=== PATIENT | male | born 2000 | race Caucasian/White ===

== ENCOUNTER 2021-06-28 11:25 | Inpatient (IN) ==
[2021-06-28] MEDS ORDERED: Al Hydrox/Mg Hydrox/Simet LIQ 30 ML UDC PO PRN (12:41)
[2021-06-28] MEDS ORDERED: LORazepam 2 mg VIAL 1 ml IM ONE (13:04)
[2021-06-28] MEDS ORDERED: Haloperidol 5 mg/ml SDV IV/IM 5 MG/ML AMP IM ONE (13:04)
[2021-06-28] MEDS ORDERED: diPHENhydraMINE IV 50 MG/ML 1 ml VIAL (BENADRYL) IM ONE (13:04)
[2021-06-28] MEDS ORDERED: Lorazepam PYXIS KEY PRN (13:04)
[2021-06-28 14:49] LABS: Rapid COVID-19 Molecular Undetected (Undetected)
[2021-06-28 17:58] LABS: ABS Eosinophils 0.1 10^3/ul (0-0.6); ABS Lymphocytes 2.1 10^3/ul (1.0-4.8); ABS Monocytes 0.5 10^3/ul (0-0.8); ABS Neutrophils 4.4 10^3/ul (1.5-7.7); Eosinophil % 1.4 %; Hematocrit 47 % (42-52); Hemoglobin 15.8 g/dL (14.0-18.0); Lymphocyte % 29.7 %; Mean Corpuscular HGB Conc 34 g/dL (31-36); Mean Corpuscular Hemoglobin 31 pg (27-31); Mean Corpuscular Volume 93 fL (80-94); Mean Platelet Volume 8.9 fL (7.4-10.4); Nucleated Red Blood Cells % 0.1; Platelet Count 215 10^3/uL (150-450); Red Blood Count 5.09 10^6 /uL (4.18-5.48); Red Cell Distribution Width 14 % (10-15); White Blood Count 7.2 10^3/uL (3.5-10.8)
[2021-06-28 18:16] LABS: ALT 28 U/L (7-52); AST 30 U/L (13-39); Albumin 4.4 g/dL (3.2-5.2); Albumin/Globulin Ratio 1.6 (1-3); Alkaline Phosphatase 41 U/L (35-149); Anion Gap 10 mmol/L (2-11); Blood Urea Nitrogen 12 mg/dL (6-24); CO2 Carbon Dioxide 25 mmol/L (22-32); Calcium 9.6 mg/dL (8.6-10.3); Chloride 102 mmol/L (101-111); Globulin 2.7 g/dL (2-4); Glucose 86 mg/dL (70-100); Potassium 3.9 mmol/L (3.5-5.0); Sodium 137 mmol/L (135-145); Total Protein 7.1 g/dL (6.4-8.9)
[2021-06-28 18:22] LABS: Alcohol, S < 13 mg/dL (<13); Salicylate < 2.50 mg/dL (<30)
[2021-06-28 18:24] LABS: Acetaminophen < 15 mcg/mL
[2021-06-28 20:24] LABS: Valproic Acid < 13.0 mcg/mL (50-100)
[2021-06-28] MEDS ORDERED: Valproic Acid LIQ 250 MG/5 ML UDC PO SCH (21:00)
[2021-06-28] MEDS: Valproic Acid LIQ 250 MG/5 ML UDC PO SCH (21:01)
[2021-06-29] MEDS: Valproic Acid LIQ 250 MG/5 ML UDC PO SCH ×2 (11:45→20:20)
[2021-06-30] MEDS ORDERED: Flu vaccine *QUAD* 2021-22* 0.5 ML SYRINGE IM ONE (09:00)
[2021-06-30] MEDS: Valproic Acid LIQ 250 MG/5 ML UDC PO SCH (09:12)
[2021-07-06 09:35] VITALS: BP 145/77
== END 2021-07-06 09:28 | disposition home or self-care (01) | DRG 753 ==
LOC: ED 11:25 → BSU 12:42 → ED 15:13
PROVIDERS: ADMIT Psychiatry & Neurology Psychiatry; ATTEND Psychiatry & Neurology Psychiatry